=== PATIENT | male | born 1945 | race Caucasian/White ===

== ENCOUNTER → 2018-12-07 | Outpatient (CLI) | payer OTHER ==
[~2018-12-07] MED LIST: ACET500 PO; ALBU90OI INH; AMLO10 PO; AMLOD-VALSA-HC1 EACH PO; ASPI325; ASPI81CH PO; ATEN50 PO; Augmentin 875-1 EACH PO; CLON.1 PO; DILT120 PO; DULERA 200 MCG/13 GM INH; GLIM2 PO; HYDACE7.5 PO; HYDCHL25 PO; HYDR1TAB94; IBUP600 PO; INSUASPI SC; INSULANPEN; K-Tab10 MEQ PO; LISI20 PO; MECL25 PO; METF500; MULTI VITAMIN1 EACH PO; OMEP40CA12 PO; OSEL75CA PO; Omeprazole20 M1; SILD50TA PO; SIMV10 PO; TRIM250 PO; [UNRECOGNIZED DRUG - REMARK]
== END ==
LOC: LAB EV 07:00
DX: E11.65 Type 2 diabetes mellitus with hyperglycemia (principal)
CPT/HCPCS: 82043

== ENCOUNTER 2019-03-06 14:13 | Emergency (ER) | payer OTHER ==
[~2019-03-06] VITALS: Ht 167.6 cm; Wt 74.8 kg
[~2019-03-06 14:13] MED LIST changes: -Augmentin 875-1 EACH PO
[2019-03-06] MEDS ORDERED: Augmentin 875-1 EACH PO (14:31)
== END 2019-03-06 14:41 | disposition home or self-care (01) ==
LOC: ER 14:13
DX: S71.152A Open bite, left thigh, initial encounter (principal); E11.9 Type 2 diabetes mellitus without complications; F17.200 Nicotine dependence, unspecified, uncomplicated; Z79.899 Other long term (current) drug therapy; Z79.4 Long term (current) use of insulin; Z79.82 Long term (current) use of aspirin; W54.0XXA Bitten by dog, initial encounter
CPT/HCPCS: 90471; 90714; 99283-25

== ENCOUNTER → 2019-08-26 | Outpatient (CLI) | payer OTHER ==
[~2019-08-26] MED LIST changes: +Augmentin 875-1 EACH PO
[2019-08-26 12:53] LABS: Microalb/Creat Ratio UR, Rand 278.146 mg/g (0.000-30.000)
== END | disposition home or self-care (01) ==
LOC: LAB EV 08:15
PROVIDERS: Hospitalist
DX: I16.0 Hypertensive urgency (principal)
CPT/HCPCS: 82043; 82570

== ENCOUNTER 2019-11-16 09:25 | Emergency (ER) | payer OTHER ==
[~2019-11-16] VITALS: Ht 167.6 cm; Wt 76.2 kg
[2019-11-16] MEDS ORDERED: NEOPOLHCSU RIGHTEAR (11:22)
== END 2019-11-16 11:30 | disposition home or self-care (01) ==
LOC: ER 09:25
DX: H92.01 Otalgia, right ear (principal); E11.9 Type 2 diabetes mellitus without complications; Z79.82 Long term (current) use of aspirin; Z79.4 Long term (current) use of insulin; Z79.899 Other long term (current) drug therapy; Z79.2 Long term (current) use of antibiotics; F17.200 Nicotine dependence, unspecified, uncomplicated
CPT/HCPCS: 99282

== ENCOUNTER 2022-08-25 09:21 | Emergency (ER) | payer OTHER ==
[~2022-08-25] VITALS: Ht 172.7 cm; Wt 74.8 kg
[~2022-08-25 09:21] MED LIST changes: +NEOPOLHCSU RIGHTEAR
[2022-08-25] MEDS ORDERED: Robaxin750 MG PO (09:50)
== END 2022-08-25 09:58 | disposition home or self-care (01) ==
LOC: ER 09:21
DX: M54.50 Low back pain, unspecified (principal); F17.210 Nicotine dependence, cigarettes, uncomplicated
CPT/HCPCS: 99283

== ENCOUNTER 2024-10-12 07:35 | Emergency (ER) | payer OTHER ==
[~2024-10-12] VITALS: Ht 167.6 cm; Wt 74.8 kg
[~2024-10-12 07:35] MED LIST changes: +Robaxin750 MG PO
[2024-10-12 08:19] VITALS: BP 155/72
[2024-10-12] MEDS ORDERED: Voltaren100 GM TOP (11:35)
[2024-10-12] MEDS ORDERED: LIDO700A20 TOP (11:35)
[2024-10-12] MEDS ORDERED: Acetaminophen 325 MG TABLET PO ONE (11:40)
[2024-10-12] MEDS ORDERED: Lidocaine 4% 1 Patch TOP ONE (11:40)
== END 2024-10-12 11:55 | disposition home or self-care (01) ==
LOC: ER 07:35
DX: M54.50 Low back pain, unspecified (principal); G89.29 Other chronic pain; E11.9 Type 2 diabetes mellitus without complications; F17.210 Nicotine dependence, cigarettes, uncomplicated
CPT/HCPCS: 72100; 82947; 99283-25; A9270

== ENCOUNTER → 2025-01-31 | Outpatient (CLI) | payer OTHER ==
[~2025-01-31] MED LIST changes: +AMLODIPINE BESY10 MG PO; +AZIT250 PO; +CATAPRES0.1 MG PO; +CEFP200 PO; +CLONIDINE1 EA17 TD; +FURO40 PO; +GABA100 PO; +HYDRA25 PO; +HYDROCODONE-AC1 EA19 PO; -INSUASPI SC; +KLOR-CON 1010 ME9 PO; +LIDO700A20 TOP; +LIDOCAINE1 EACH TOP; +METO100ER PO; +NOVOLOG FL100 UNIT/3; +OMEP20ER PO; +SEMGLEE (Y100 UNIT/2 SC; +Simvastatin10 MG PO; +TRADJENTA5 MG PO; +VISBIOME 112.51 EACH PO; +Voltaren100 GM TOP
== END ==
LOC: LAB SHORT 18:08 → LAB 18:08
DX: N39.0 Urinary tract infection, site not specified (principal)
CPT/HCPCS: 87086

== ENCOUNTER → 2025-02-13 | Outpatient (CLI) | payer OTHER ==
[2025-02-13 10:45] LABS: Source, Urine Clean Catch
[2025-02-13 13:26] LABS: Bilirubin, Urine Neg (Neg); Color, Urine Yellow (P-Yellow); Glucose Qualitative, Urine Neg (Neg); Ketones, Urine Neg (Neg); Leukocyte Esterase, Urine 3+ (Neg); Protein, Urine 4+ (Neg); Specific Gravity, Urine 1.015 (1.003-1.022); Urobilinogen, Urine NORM (Normal)
[2025-02-13 13:32] LABS: Red Blood Cells, Urine TNTC /hpf (0-2); White Blood Cells, Urine TNTC /hpf (0-5)
== END ==
LOC: LAB 10:44 → LAB SHORT 10:44
PROVIDERS: Family Medicine
DX: N39.0 Urinary tract infection, site not specified (principal)
CPT/HCPCS: 81001; 87077; 87086; 87186

== ENCOUNTER → 2025-02-21 | Outpatient (CLI) | payer OTHER ==
[2025-02-21 16:05] LABS: Creatinine, Urine Random 4.56 mg/dL (27.00-270.00); Protein, Urine Random 201.8 mg/dL (0.0-11.9); Protein/Creat Ratio, Ur Random 44.3
== END ==
LOC: LAB 11:14 → LAB SHORT 11:14
PROVIDERS: Hospitalist
DX: E11.22 Type 2 diabetes mellitus with diabetic chronic kidney disease (principal); N18.4 Chronic kidney disease, stage 4 (severe)
CPT/HCPCS: 82570; 84156

== ENCOUNTER → 2025-02-23 | Outpatient (CLI) | payer OTHER | LOC: LAB 11:00 → LAB SHORT 11:00 | DX: N39.0 Urinary tract infection, site not specified (principal) | CPT/HCPCS: 87077; 87086; 87186 ==

== ENCOUNTER → 2025-04-21 | Outpatient (CLI) | payer OTHER ==
[2025-04-24 09:25] LABS: Source, Urine Clean Catch
[2025-04-24 09:26] LABS: Color, Urine Yellow (P-Yellow)
[2025-04-24 09:27] LABS: Bilirubin, Urine Neg (Neg); Glucose Qualitative, Urine Neg (Normal); Ketones, Urine Neg (Neg); Leukocyte Esterase, Urine 2+ (Neg); Protein, Urine 3+ (Neg); Specific Gravity, Urine 1.015 (1.003-1.022); Urobilinogen, Urine NORM (Normal); White Blood Cells, Urine TNTC /hpf (0-5)
== END ==
LOC: LAB 10:00 → LAB SHORT 10:00
PROVIDERS: Family Medicine
DX: R32 Unspecified urinary incontinence (principal)
CPT/HCPCS: 81001; 87086

== ENCOUNTER → 2025-05-19 | Outpatient (CLI) | payer OTHER ==
[2025-05-19 13:46] LABS: Source, Urine Clean Catch
[2025-05-19 13:48] LABS: Source, Urine Clean Catch
[2025-05-19 14:13] LABS: Color, Urine Yellow (P-Yellow); Glucose Qualitative, Urine Trace (Normal); Leukocyte Esterase, Urine 2+ (Neg); Protein, Urine 3+ (Neg); Specific Gravity, Urine 1.015 (1.003-1.022)
[2025-05-19 14:14] LABS: Bilirubin, Urine Neg (Neg); Ketones, Urine Neg (Neg); Urobilinogen, Urine NORM (Normal); White Blood Cells, Urine TNTC /hpf (0-5)
[2025-05-19 14:16] LABS: Bilirubin, Urine Neg (Neg); Color, Urine Yellow (P-Yellow); Glucose Qualitative, Urine 1+ (Normal); Ketones, Urine Neg (Neg); Leukocyte Esterase, Urine 2+ (Neg); Protein, Urine 3+ (Neg); Specific Gravity, Urine 1.015 (1.003-1.022); Urobilinogen, Urine NORM (Normal)
[2025-05-19 14:17] LABS: White Blood Cells, Urine TNTC /hpf (0-5)
== END ==
LOC: LAB 13:20 → LAB SHORT 13:20
PROVIDERS: Family Medicine; Hospitalist
DX: R32 Unspecified urinary incontinence (principal); I12.9 Hypertensive chronic kidney disease with stage 1 through stage 4 chronic kidney disease, or unspecified chronic kidney disease; E11.22 Type 2 diabetes mellitus with diabetic chronic kidney disease; N18.4 Chronic kidney disease, stage 4 (severe)
CPT/HCPCS: 81001; 87077; 87086; 87186